=== PATIENT | female | born 1965 | race Caucasian/White ===

== ENCOUNTER 2021-01-01 09:25 | Inpatient (IN) | payer OTHER ==
[~2021-01-01] VITALS: Ht 167.6 cm; Wt 152.1 kg
[~2021-01-01 09:25] MED LIST: AMLODIPINE BESY10 MG PO; ATARAX25 MG PO; CARVEDILOL12.5 MG PO; CETIRIZINE HCL10 MG PO; CLOTRIMAZOLE-BE30 ML TOP; DIAZEPAM10 MG PO; ELAVIL25 MG PO; ELIQUIS5 MG PO; FLONASE ALLER15.8 ML; GABAPENTIN300 MG PO; K-DUR20 MEQ PO; LASIX80 MG PO; METFORMIN HCL1000 MG PO; MONTELUKAST SOD10 MG PO; ROPINIROLE HCL0.5 MG PO; VALTREX1000 MG PO; VENLAFAXINE HCL75 M1 PO
[2021-01-01 10:11] LABS: BASOPHIL 0.7 % (0-2); EOSINOPHIL 0.9 % (0-5); HCT 52.7 % (37.0-47.0); HGB 16.9 g/dl (12.5-16.0); LYMPHOCYTE 29.8 % (15-48); MCH 31.8 pg (25.0-31.0); MCHC 32.1 g/dL (32.0-36.0); MCV 99.1 fL (78.0-100.0); MONOCYTE 7.2 % (0-12); MPV 9.6 fL (6.0-9.5); NEUTROPHIL 61.1 % (41-80); NRBC 0; PLT 281 K/uL (150-400); RBC 5.32 M/uL (4.20-5.40); RDW 14.1 % (11.5-14.0); WBC 7.6 K/uL (4.0-10.5)
[2021-01-01 10:35] LABS: ALBUMIN 3.3 g/dL (3.4-5.0); BILIRUBIN - TOTAL 0.4 mg/dL (0.2-1.0); BUN/CREAT RATIO (CALC) 11.5 RATIO; CREATININE 0.61 mg/dL (0.51-0.95); GLOBULIN (CALCULATION) 4.8 g/dL; TOTAL PROTEIN 8.1 g/dL (6.4-8.2)
[2021-01-02 07:25] LABS: BASOPHIL 0.4 % (0-2); EOSINOPHIL 0.1 % (0-5); HCT 49.6 % (37.0-47.0); HGB 15.5 g/dl (12.5-16.0); LYMPHOCYTE 22.4 % (15-48); MCH 31.5 pg (25.0-31.0); MCHC 31.3 g/dL (32.0-36.0); MCV 100.8 fL (78.0-100.0); NEUTROPHIL 70.6 % (41-80); NRBC 0.2; RBC 4.92 M/uL (4.20-5.40); RDW 13.9 % (11.5-14.0); WBC 9.4 K/uL (4.0-10.5)
[2021-01-02 07:26] LABS: CKMB <0.5 ng/mL (0.0-3.6); PRO-BNP 200 pg/mL (<125)
[2021-01-02 07:40] LABS: BUN/CREAT RATIO (CALC) 15.2 RATIO; CREATININE 0.66 mg/dL (0.51-0.95); MAGNESIUM 2.2 mg/dL (1.8-2.4); POTASSIUM 4.4 mmol/L (3.5-5.1)
[2021-01-02 07:47] LABS: PLT 285 K/uL (150-400)
[2021-01-03 04:48] LABS: BASOPHIL 0.6 % (0-2); HCT 51.5 % (37.0-47.0); HGB 16.1 g/dl (12.5-16.0); LYMPHOCYTE 33.3 % (15-48); MCH 31.4 pg (25.0-31.0); MCHC 31.3 g/dL (32.0-36.0); MCV 100.6 fL (78.0-100.0); MONOCYTE 6.9 % (0-12); MPV 9.7 fL (6.0-9.5); NEUTROPHIL 57.8 % (41-80); NRBC 0; PLT 258 K/uL (150-400); RBC 5.12 M/uL (4.20-5.40); WBC 8.3 K/uL (4.0-10.5)
[2021-01-03 05:05] LABS: BUN/CREAT RATIO (CALC) 12.7 RATIO; CREATININE 0.71 mg/dL (0.51-0.95); MAGNESIUM 2.1 mg/dL (1.8-2.4); POTASSIUM 3.3 mmol/L (3.5-5.1)
[2021-01-03] MEDS ORDERED: LEVAQUIN500 MG PO (11:46)
== END 2021-01-03 16:36 | disposition home or self-care (01) | DRG 314 ==
LOC: FAS 09:25 → FTCU 14:56
PROVIDERS: Internal Medicine; Internal Medicine Cardiovascular Disease; Oral & Maxillofacial Surgery; ADMIT Internal Medicine
PROC: 0CDWXZ0 Extraction of Upper Tooth, Single, External Approach (ICD-10-PCS; 2021-01-01)
PROC: 5A12012 Performance of Cardiac Output, Single, Manual (ICD-10-PCS; 2021-01-01)
PROC: 0CDXXZ1 Extraction of Lower Tooth, Multiple, External Approach (ICD-10-PCS; principal; 2021-01-01 10:15)
DX: I97.711 Intraoperative cardiac arrest during other surgery (principal); J81.0 Acute pulmonary edema; I47.2 Ventricular tachycardia; Z68.43 Body mass index [BMI] 50.0-59.9, adult; J98.01 Acute bronchospasm; K04.7 Periapical abscess without sinus; E66.01 Morbid (severe) obesity due to excess calories; Z20.822 Contact with and (suspected) exposure to COVID-19; F17.210 Nicotine dependence, cigarettes, uncomplicated; I11.0 Hypertensive heart disease with heart failure; I50.9 Heart failure, unspecified; E11.9 Type 2 diabetes mellitus without complications; F41.9 Anxiety disorder, unspecified; G25.81 Restless legs syndrome; E78.5 Hyperlipidemia, unspecified; F32.9 Major depressive disorder, single episode, unspecified; I25.10 Atherosclerotic heart disease of native coronary artery without angina pectoris; M79.7 Fibromyalgia; Z88.2 Allergy status to sulfonamides; Z88.0 Allergy status to penicillin; Z91.040 Latex allergy status; Z88.1 Allergy status to other antibiotic agents; Z88.5 Allergy status to narcotic agent; Z88.8 Allergy status to other drugs, medicaments and biological substances; Z79.01 Long term (current) use of anticoagulants; Z79.899 Other long term (current) drug therapy; Z86.711 Personal history of pulmonary embolism; Z98.890 Other specified postprocedural states; Z90.89 Acquired absence of other organs; Z86.718 Personal history of other venous thrombosis and embolism; Y83.8 Other surgical procedures as the cause of abnormal reaction of the patient, or of later complication, without mention of misadventure at the time of the procedure
CPT/HCPCS: 36415; 71045; 71046; 80048; 80053; 82553; 82962; 83735; 83880; 84484; 85025; 93005; J0690; J1100; J1170; J1885; J2250; J2405; J2704; J3010; J7120; U0002